=== PATIENT | male | born 1975 | race Caucasian/White ===

== ENCOUNTER 2024-03-16 01:58 | Emergency (ER) | payer BC | END 2024-03-16 03:30 | LOC: CSHERS 01:58 | DX: S00.01XA Abrasion of scalp, initial encounter (principal); I10 Essential (primary) hypertension; J44.9 Chronic obstructive pulmonary disease, unspecified; F17.220 Nicotine dependence, chewing tobacco, uncomplicated; W18.09XA Striking against other object with subsequent fall, initial encounter | CPT/HCPCS: 70450; 72125 ==